=== PATIENT | male | born 2000 | race African-American/Black ===

== ENCOUNTER 2024-02-11 21:03 | Emergency (ER) | payer MEDICAID ==
[~2024-02-11] VITALS: Ht 167.6 cm; Wt 54.0 kg
[2024-02-11 21:39] VITALS: O2SAT 98
[2024-02-12] MEDS: KETOROLAC 30MG/ML VIAL IM STA (00:20)
[2024-02-12] MEDS ORDERED: NAPR-681 PO (00:55)
[2024-02-12 01:16] VITALS: BP 111/67; PULSE 62; RESP 18; TEMP 36.94740; O2SAT 100
== END 2024-02-12 01:19 | disposition home or self-care (01) ==
LOC: ER 21:03
DX: S83.92XA Sprain of unspecified site of left knee, initial encounter (principal); S80.02XA Contusion of left knee, initial encounter; I10 Essential (primary) hypertension; W18.39XA Other fall on same level, initial encounter; Y93.01 Activity, walking, marching and hiking; Y92.89 Other specified places as the place of occurrence of the external cause; Y99.8 Other external cause status
CPT/HCPCS: 73562; 99283; 96372; J1885; Z7610